=== PATIENT | male | born 1955 ===

== ENCOUNTER 2024-10-20 11:34 | Outpatient (AMB) | payer MEDICARE, SELFPAY ==
--- OUTSIDE RECORDS SUMMARY | 2024-10-20 12:56 | XMS_ITS | Clinical Summary ---
Author Organization [facility] Address [address] [place] [address] Care Team Providers Care Paper Baling Machine Operator Name Role Phone Jackson Orozco MD Primary Care Provider [phone]- [phone] Allergies No known active allergies Medications Medication Sig Dispensed Refills Start Date End Date Status apixaban (ELIQUIS) 2.5 MG TABS tablet Take 1 tablet (2.5 mg total) by mouth every 12 (twelve) hours. 0 Active albuterol 108 (90 Base) MCG/ACT inhaler Inhale 2 puffs into the lungs every 6 (six) hours as needed for wheezing. 0 Active allopurinol (ZYLOPRIM) 300 MG tablet Take 1 tablet (300 mg total) by mouth daily. 0 Active budesonide-formotero l (SYMBICORT) 160-4.5 MCG/ACT inhaler Inhale 2 inhalations into the lungs 2 (two) times a day. 0 Active vitamin D3 (cholecalciferol) 25 MCG (1000 UT) tablet Take 1 tablet (25 mcg total) by mouth daily. 0 Active esomeprazole (NexIUM) capsule 20 mg Take 1 capsule (20 mg total) by mouth every morning before breakfast. 0 Active pregabalin (Lyrica) 75 MG capsule Take 1 capsule (75 mg total) by mouth 2 (two) times a day. 0 Active vitamin E 100 UNIT capsule Take 1 capsule (100 Units total) by mouth daily. 0 Active magnesium oxide 400 (240 Mg) MG TABS tablet Take 1 tablet (400 mg total) by mouth 2 (two) times a day. 0 Active Fluticasone-Umeclidi n-Vilant (TRELEGY ELLIPTA IN) Inhale into the lungs. 0 Active folic acid (FOLVITE) tablet 1 mg Take 1 tablet (1 mg total) by mouth daily. 0 Active Active Problems No known active problems Social History Tobacco Use Types Packs/Day Years Used Date Smoking Tobacco: Former Cigarettes Smokeless Tobacco: Never Tobacco Cessation:Counseling Given: Not Answered Alcohol Use Standard Drinks/Week Comments Yes 0 (1 standard drink = 0.6 oz pur e alcohol) Sex and Gender Information Value Date Recorded Sex Assigned at Not on file Gender Identity Not on file Sexual Orientation Not on file Job Start Date Occupation Industry Not on file Not on file Not on file Last Filed Vital Signs Vital Sign Reading Time Taken Comments Blood Pressure 153/87 05/15/2023 1:10 PM EDT Pulse 70 05/15/2023 1:10 PM EDT Temperature 36.4 C (97.6 F) 05/15/2023 1:10 PM EDT Respiratory Rate - - Oxygen Saturation 100% 05/15/2023 1:10 PM EDT Inhaled Oxygen Concentration - - Weight 69.4 kg (153 lb) 05/15/2023 1:10 PM EDT Height - - Body Mass Index - - Plan of Treatment Health Maintenance Due Date Last Done Comments Hepatitis C Screening 1954 Depression Screening 1966 Preventative Health Evaluation 1972 Colon Cancer Screening (Colonoscopy) 09/28/1999 Fall Risk Assessment 09/28/2019 Pneumococcal Vaccine (2 of 2 - PPSV23 or PCV20) 09/28/2019 03/29/2012 Shingrix-Zoster Vaccine (2 of 2) 10/15/2021 08/20/2021 COVID-19 Vaccine (3 - season) 2023 05/26/2020, 04/28/2020 Influenza Vaccine (#1) 2024 , 11/17/2019, 12/19/2018, Additional history exists RSV Adult > 60+ Yrs or (1 - 1-dose 75+ series) 2029 DTap / Tdap / Td (4 - Td or Tdap) 08/31/2031 08/30/2021, 08/30/2021, 12/18/2011 Hepatitis B Vaccines Aged Out No long er eligible based on patient's age to complete this topic RSV Ped < 20 months Aged Out No longe r eligible based on patient's age to complete this topic Care Teams Paper Baling Machine Operator Relationship Specialty Start Date End Date Jackson Orozco MD [address] [place] [phone] PCP - General Internal Medicine 05/29/22
--- OUTSIDE RECORDS SUMMARY | 2024-10-20 12:56 | XMS_ITS | Clinical Summary ---
Author Organization 175 [facility] Address [address] [place] [address] Phone Care Team Providers Care Display Coordinator Name Role Phone Clarita, Eda Aragon NP Primary Care Provider + Allergies Active Allergy Reactions Criticality Noted Date Comments Other Runny nose Medium 09/09/2015 Medications allopurinoL (ZYLOPRIM) 300 mg tablet Take 1 tablet (300 mg total) by mouth 1 (one) time each day. 3 Active apixaban (ELIQUIS) 2.5 mg tablet Take 1 tablet (2.5 mg total) by mouth 2 (two) times a day. Active budesonide-form oteroL (Symbicort) 160-4.5 mcg/actuation inhaler TAKE INSTRUCTED BY YOUR PRESCRIBER 3 Active cetirizine (ZyrTEC) 10 mg tablet Take 1 tablet (10 mg total) by mouth 1 (one) time each day. Active fluticasone propion-salmete roL (Advair HFA) 230-21 mcg/actuation inhaler Inhale 2 puffs by mouth 2 (two) times a day. 3 Active fluticasone propionate (FLONASE) 50 mcg/actuation nasal spray Administer 2 sprays into affected nostril(s) 1 (one) time each day. Active pregabalin (LYRICA) 150 mg capsule Take 1 capsule (150 mg total) by mouth 2 (two) times a day. Active fluticasone-ume clidinium-vilan terol (Trelegy Ellipta) 100-62.5-25 mcg inhaler USE 1 INHALATION ORALLY DAILY 1 each 11 5 Active lisinopriL (PRINIVIL,ZESTR IL) 20 mg tablet Take 1 tablet (20 mg total) by mouth 1 (one) time each day. Active esomeprazole (NexIUM) [address] capsuleIndicati ons:Gastroesoph ageal reflux disease without esophagitis Take 1 capsule (20 mg total) by mouth 2 (two) times a day before meals. 180 each 1 5 025 Active vitamin E mixed 1,000 unit capsule Take 100 Units by mouth 1 (one) time each day. Active cholecalciferol (VITAMIN D-3) 25 mcg (1,000 unit) tablet Take 1 tablet (1,000 Units total) by mouth 1 (one) time each day. Active folic acid (FOLVITE) 1 mg tablet Take 1 tablet (1 mg total) by mouth 1 (one) time each day. Active albuterol HFA (PROAIR HFA ; PROVENTIL HFA ; VENTOLIN HFA) 90 mcg/actuation inhaler Inhale 2 puffs by mouth every 4 (four) hours if needed for wheezing. 3 each 1 5 026 Active predniSONE (DELTASONE) 20 mg tablet Take 1 tablet (20 mg total) by mouth 1 (one) time each day for 7 days. 7 each 5 025 Discontinu ed(Reorder ) predniSONE (DELTASONE) 20 mg tablet Take 1 tablet (20 mg total) by mouth 1 (one) time each day for 7 days. 7 each 5 025 Active Problems Problem Noted Date Diagnosed Date Esophageal reflux 12/19/2018 Irritable bowel syndrome 12/19/2018 Hyperlipidemia 06/15/2017 Vitamin D deficiency 05/10/2017 Hiatal hernia 08/31/2016 Moderate COPD (chronic obstr uctive pulmonary disease) (CMS/HCC V24, CMS/HCC V28) 08/31/2016 Moderate persistent asthma without complication 08/31/2016 Tubular adenoma of colon 07/26/2016 Rotator cuff tendonitis 05/29/2016 Thrombosed external hemorrhoids 07/16/2015 Internal hemorrhoids 07/15/2015 Allergic rhinitis 05/17/2015 Liver hemangioma 10/26/2014 Low back pain 10/26/2014 Depression 05/30/2013 Gout 04/04/2013 ED (erectile dysfunction) 09/13/2012 Dysphonia 06/09/2011 Encounters Date Type Department Care Team Description 08/18/2024 Telephone Pulmonolgy - [place] [facility] [address] [place] [address] Ion Cha MD 07/22/2024 10:00 AM EDT Office Visit Gastroenterology - [place] [address] [place] [address] [facility] [address] [place] [address] Jj Valenzuela MD Gastroesophageal reflux disease without esophagitis (Primary Dx); Tubular adenoma of colon from Last 3 Months Immunizations Name Administration Dates Next Due DTaP, Unspecified 08/30/2021 Influenza trivalent, 0.5mL, preservative free (Fluarix; FluLaval; Fluzone) ages 6mo and older (Afluria) 3 years and older 12/10/2015 Influenza trivalent, with pr eservative (Fluzone; Afluria) 6mo and older 12/08/2016 Pneumococcal Conjugate Vaccine, 7 Valent 013 Tdap Tetanus diptheria acell ular pertussis (Boostrix; Adacel) 7yo and older 12/18/2011 Surgical History Surgery Date Site/Laterality Comments COLONOSCOPY 07/21/2016 PROCEDURE: HISTORICAL COLONOSCOPY; COMMENT: tubular adenoma, internal hemorrhoids. Repeat 5 years. UPPER GASTROINTESTINAL ENDOSCOPY 10/01/2015 PROCEDURE: [place] UPPER GI ENDOSCOPY PERFORMED; COMMENT: Hiatal hernia, possible short segment 's and antral nodule. OTHER SURGICAL HISTORY 05/25/2022 PROCEDURE: X-RAY EXAM OF LUNG ARTERIES OTHER SURGICAL HISTORY 05/25/2022 PROCEDURE: [place] PRIM PRQ TRLUML MCHNL THRMBC N-COR N-ICRA 1ST OTHER SURGICAL HISTORY 05/25/2022 PROCEDURE: ULTRASOUND GUIDANCE FOR VASCULAR AC Medical History Medical History Date Comments History of esophagitis 11/20/2017 DX:Histor y of esophagitis; COMMENT: Acute Hyperlipidemia 06/15/2017 DX:Hyperlipidemi a Allergic rhinitis 05/17/2015 DX:Allergic rh initis Asthma 09/30/2015 DX:Asthma Depression 05/30/2013 DX:Depression Dysphonia 06/09/2011 DX:Dysphonia Esophageal reflux 12/19/2018 DX:Esophageal reflux Family history of colon cancer 12/19/2018 D X:Family history of colon cancer Former smoker 08/31/2016 DX:Former smoker Gout 04/04/2013 DX:Gout Internal hemorrhoids 07/15/2015 DX:Internal hemorrhoids Irritable bowel syndrome (IBS) 12/19/2018 D X:Irritable bowel syndrome (IBS) Liver hemangioma 10/26/2014 DX:Liver zulay ioma Moderate COPD (chronic obstr uctive pulmonary disease) (CMS/HCC V24, CMS/HCC V28) 08/31/2016 DX:Moderate COPD (chronic obstructive pulmonary disease) (HCC) Overlap syndrome (CMS/HCC V24) 08/31/2016 D X:Overlap syndrome (HCC) Vitamin D deficiency 05/10/2017 DX:Vitamin D deficiency Tubular adenoma of colon 07/26/2016 DX:Tubu lar adenoma of colon Rotator cuff tendonitis 05/29/2016 DX:Rotat or cuff tendonitis Moderate persistent asthma w ithout complication 08/31/2016 DX:Moderate persistent asthm a without complication Irritable bowel syndrome 12/19/2018 DX:Irri table bowel syndrome Low back pain 10/26/2014 DX:Low back pain Hiatal hernia 08/31/2016 DX:Hiatal hernia ED (erectile dysfunction) 09/13/2012 DX:ED (erectile dysfunction) History of gastritis 01/16/2019 DX:History of gastritis Social History Tobacco Use Types Packs/Day Years Used Date Smoking Tobacco: Former Cigarettes 1 16 0 03/05/1972 - 03/05/1988 Smokeless Tobacco: Never Tobacco Cessation:Counseling Given: Not Answered Alcohol Use Standard Drinks/Week Comments Yes 11.7 (1 standard drink = 0.6 oz pure alcohol) Sex and Gender Information Value Date Recorded Sex Assigned at Not on file Legal Sex Male 5:24 PM EST Gender Identity Not on file Sexual Orientation Not on file Obstetrics History Last Filed Vital Signs Vital Sign Reading Time Taken Comments Blood Pressure 112/66 07/22/2024 9:54 AM EDT Pulse 72 07/22/2024 9:54 AM EDT Temperature 36.3 C (97.3 F) 05/30/2024 8:21 AM EDT Respiratory Rate 20 05/30/2024 8:21 AM EDT Oxygen Saturation 98% 05/30/2024 8:21 AM EDT Inhaled Oxygen Concentration - - Weight 61.7 kg (136 lb) 07/22/2024 9:54 AM EDT Height 175.3 cm (5' 9 ) 07/22/2024 9:54 AM EDT Body Mass Index 20.08 07/22/2024 9:54 AM EDT Plan of Treatment Upcoming Encounters Date Type Department Care Team (Late st Contact Info) Description 12/05/2024 8:45 AM EDT Office Visit Pulmonolgy - [place] [address] [phone] Ion Cha MD [address] [address] 12/11/2024 9:[address] [facility] Endoscopy [address] [place] [phone] Jj Valenzuela MD [address] [address] Health Maintenance Due Date Last Done Comments Pneumococcal Vaccine: 50+ Years (1 of 2 - PCV) 1973 Zoster Vaccines (2 of 2) 10/15/2021 08/20/2021 Abdominal Aortic Aneurysm (AAA) Screen 02/11/2022 Falls Risk Assessment 02/11/2022 Hepatitis C Screening 02/11/2022 Medicare Annual Wellness Visit 02/11/2022 Social Influencers of Health Screening 02/11/2022 COVID-19 Vaccine ( season) 2023 12/03/2021, 06/26/2021, 01/08/2021, Additional history exists Depression Screening 03/05/2024 Cholesterol Screening (Lipid Panel) 11/02/2024 11/03/2019, 11/03/2019 Influenza Vaccine (#1) 2024 4, 11/20/2022, 12/03/2021, Additional history exists Colorectal Cancer Screening: Colonoscopy 12/21/2024 12/22/2019, 12/22/2019 DTaP,Tdap,and Td Vaccines (3 - Td or Tdap) 08/31/2031 08/30/2021, 08/30/2021, 12/18/2011 RSV Immunization Adult Patients Completed 11/20/2022 HIB Vaccines Aged Out No longer eligi ble based on patient's age to complete this topic HPV Vaccines Aged Out No longer eligi ble based on patient's age to complete this topic Hepatitis A Vaccines Aged Out No long er eligible based on patient's age to complete this topic Hepatitis B Vaccines Aged Out No long er eligible based on patient's age to complete this topic IPV Vaccines Aged Out No longer eligi ble based on patient's age to complete this topic MMR Vaccines Aged Out No longer eligi ble based on patient's age to complete this topic Meningococcal ACWY Vaccine Aged Out N o longer eligible based on patient's age to complete this topic Meningococcal B Vaccine Aged Out No l onger eligible based on patient's age to complete this topic RSV Immunization Patients Under 20 months Aged Out No longer eligible based on patient's age to complete this topic Varicella Vaccines Aged Out No longer eligible based on patient's age to complete this topic Procedures Procedure Name Priority Date/Time Associated Diagnosis Comments COLONOSCOPY Routine 12/22/2019 LIPID PANEL Routine 11/03/2019 from Last 3 Months or Most Recently Relevant to Health Maintenance Results * Colonoscopy (12/22/2019) [facility] Colonoscopy no interpretation , abstracted Anatomical Region Laterality Modality Other Historical Provider HEALTH MAINTENANCE Final Result * (ABNORMAL) Lipid panel (11/03/2019) Pathologist [facility] LDL/HDL Ratio 2 0 - 4 Triglycerides 123 0 - 150 mg/dL Cholesterol 205(A) 0 - 200 mg/dL HDL 119 >=40 mg/dL LDL Cholesterol 62 0 - 100 mg/dL Blood Venous blood specimen / Unknown Historical Provider LAB BLOOD ORDERABLES Verito l Result from Last 3 Months or Most Recently Relevant [place] [id number] [employer] - [place] MEDICARE ADVANTAGE Care Teams Display Coordinator Relationship Specialty Start Date End Date Eda Otto NP [address] [facility] [address] [place] [address] PCP - General Family Medicine 07/22/24
== END 2024-10-20 11:37 | disposition home or self-care (01) ==
LOC: HO.HMGAL 11:34
PROVIDERS: PCP Nurse Practitioner Family; Visit Provider Registered Nurse Emergency
DX: J30.89 Other allergic rhinitis (principal)
CPT/HCPCS: 95117; 95165

== ENCOUNTER 2024-11-10 10:37 | Outpatient (AMB) | payer MEDICARE, SELFPAY ==
--- OUTSIDE RECORDS SUMMARY | 2024-11-10 12:49 | XMS_ITS | Clinical Summary ---
Author Organization [facility] Address [address] [place] [address] Care Team Providers Care Mill Tender Warm Up Name Role Phone Jackson Orozco MD Primary Care Provider +1- [phone] Allergies No known active allergies Medications Medication [...] 10/15/2021 08/20/2021 COVID-19 Vaccine (3 - season) 2024 05/26/2020, 04/28/2020 Influenza Vaccine (#1) 2024 , [...] age to complete this topic Care Teams Mill Tender Warm Up Relationship Specialty Start Date End Date Jackson Orozco MD [address] [place] [phone] PCP - General Internal Medicine 05/29/22
--- OUTSIDE RECORDS SUMMARY | 2024-11-10 12:49 | XMS_ITS | Clinical Summary ---
Author Organization 175 [facility] Address [address] [place] [address] Phone Care Team Providers Care Pulper Tender Name Role Phone Clarita, Eda Aragon NP [...] mouth 2 (two) times a day. Active budesonide-formo teroL (Symbicort) 160-4.5 mcg/actuation inhaler TAKE INSTRUCTED BY YOUR PRESCRIBER 3 Active cetirizine (ZyrTEC) 10 mg tablet Take 1 tablet (10 mg total) by mouth 1 (one) time each day. Active fluticasone propion-salmeter oL (Advair HFA) 230-21 mcg/actuation inhaler Inhale 2 puffs by mouth 2 (two) times a day. 3 Active fluticasone propionate (FLONASE) 50 mcg/actuation nasal spray Administer 2 sprays into affected nostril(s) 1 (one) time each day. Active pregabalin (LYRICA) 150 mg capsule Take 1 capsule (150 mg total) by mouth 2 (two) times a day. Active fluticasone-umec lidinium-vilante rol (Trelegy Ellipta) 100-62.5-25 mcg inhaler USE 1 INHALATION ORALLY DAILY 1 each 11 5 Active lisinopriL (PRINIVIL,ZESTRI L) 20 mg tablet Take 1 tablet (20 mg total) by mouth 1 (one) time each day. Active esomeprazole (NexIUM) [address] capsuleIndicatio ns:Gastroesophag eal reflux disease without esophagitis Take 1 capsule (20 mg total) by mouth 2 (two) times a day before meals. 180 each 1 5 12/31/19 25 Active vitamin E mixed 1,000 unit capsule [...] needed for wheezing. 3 each 1 5 09/09/19 26 Active predniSONE (DELTASONE) 20 mg tablet Take 1 tablet (20 mg total) by mouth 1 (one) time each day for 7 days. 7 each 5 10/18/19 25 Active Problems Problem Noted Date Diagnosed Date Esophageal reflux 12/19/2018 Irritable bowel syndrome 12/19/2018 Hyperlipidemia 06/15/2017 Vitamin D deficiency 05/10/2017 Hiatal hernia 08/31/2016 Moderate COPD (chronic obstr uctive pulmonary disease) ([facility] V24, [facility] V28) 08/31/2016 Moderate persistent asthma without complication 08/31/2016 Tubular adenoma of colon 07/26/2016 Rotator cuff tendonitis 05/29/2016 Thrombosed external hemorrhoids 07/16/2015 Internal hemorrhoids 07/15/2015 Allergic rhinitis 05/17/2015 Liver hemangioma 10/26/2014 Low back pain 10/26/2014 Depression 05/30/2013 Gout 04/04/2013 ED (erectile dysfunction) 09/13/2012 Dysphonia 06/09/2011 Encounters Date Type Department Care Team Description 08/18/2024 Telephone Pulmonolgy - [place] 175 [facility] [address] [place] [address] Ion Cha MD from Last 3 Months Immunizations Name Administration [...] 5 years. UPPER GASTROINTESTINAL ENDOSCOPY 10/01/2015 PROCEDURE: [place] UPPER GI ENDOSCOPY PERFORMED; COMMENT: Hiatal hernia, possible short segment 's and antral nodule. OTHER SURGICAL HISTORY 05/25/2022 PROCEDURE: X-RAY EXAM OF LUNG ARTERIES OTHER SURGICAL HISTORY 05/25/2022 PROCEDURE: [place] PRIM PRQ TRLUML MCHNL THRMBC N-COR N-ICRA [...] 08/31/2016 DX:Moderate COPD (chronic obstructive pulmonary disease) ([facility]) Overlap syndrome ([facility] V24) 08/31/2016 D X:Overlap syndrome ([facility]) Vitamin D deficiency 05/10/2017 DX:Vitamin D deficiency [...] 8:45 AM EDT Office Visit Pulmonolgy - [place] 175 [facility] [address] [place] [phone] Ion Cha MD 175 [facility] [address] [place] [address] 12/11/2024 9:00 AM EDT Appointment [facility] Endoscopy [address] [place] [phone] Jj Valenzuela MD [address] [place] [phone] Health Maintenance Due Date Last Done Comments Pneumococcal Vaccine: 50+ Years (1 of 2 - PCV) 1973 Zoster Vaccines (2 of 2) 10/15/2021 08/20/2021 Abdominal Aortic Aneurysm (AAA) Screen 02/11/2022 Falls Risk Assessment 02/11/2022 Hepatitis C Screening 02/11/2022 Medicare Annual Wellness Visit 02/11/2022 Social Influencers of Health Screening 02/11/2022 Depression Screening 03/05/2024 Cholesterol Screening (Lipid Panel) 11/02/2024 11/03/2019, 11/03/2019 COVID-19 Vaccine ( season) 2024 12/03/2021, 06/26/2021, 01/08/2021, Additional history exists Influenza Vaccine (#1) 2024 , 11/20/2022, 12/03/2021, Additional history exists Colorectal Cancer [...] to Health Maintenance Results * Colonoscopy (12/22/2019) Pathologist Pending sale to [facility] Colonoscopy no interpretation , abstracted Anatomical Region Laterality Modality Other Historical Provider HEALTH MAINTENANCE Final Result * (ABNORMAL) Lipid panel (11/03/2019) LDL/HDL Ratio 2 0 - 4 Triglycerides 123 0 - 150 mg/dL Cholesterol 205(A) 0 - 200 mg/dL HDL 119 >=40 mg/dL LDL Cholesterol 62 0 - 100 mg/dL Blood Venous blood specimen / Unknown Historical Provider LAB BLOOD ORDERABLES Verito l Result from Last 3 Months or Most Recently Relevant to Health Maintenance Insurance [employer] - [place] MEDICARE ADVANTAGE Care Teams Pulper Tender Relationship Specialty Start Date End Date Eda Otto NP 21 [facility] [place] [address] [place] [address] PCP - General Family Medicine 07/22/24
== END 2024-11-10 10:56 | disposition home or self-care (01) ==
LOC: HO.HMGAL 10:37
PROVIDERS: PCP Nurse Practitioner Family; Visit Provider Registered Nurse Emergency
DX: J30.89 Other allergic rhinitis (principal)
CPT/HCPCS: 95117; 95165

== ENCOUNTER 2024-12-29 12:50 | Outpatient (AMB) | payer MEDICARE, SELFPAY ==
--- OUTSIDE RECORDS SUMMARY | 2024-12-29 16:18 | XMS_ITS | Clinical Summary ---
Author Organization 175 [facility] Address [address] [place] [address] Phone Care Team Providers Care Product Info Specialist Name Role Phone Eda Otto NP Primary Care Provider + Allergies No known active allergies Medications allopurinoL (ZYLOPRIM) 300 mg tablet Take 1 tablet (300 mg total) by mouth 1 (one) time each day. 10/11/19 23 Active apixaban (ELIQUIS) 2.5 mg tablet Take 1 tablet (2.5 mg total) by mouth 2 (two) times a day. Active cetirizine (ZyrTEC) 10 mg tablet Take 1 tablet (10 mg total) by mouth 1 (one) time each day. Active fluticasone propionate (FLONASE) 50 mcg/actuation nasal spray Administer 2 sprays into affected nostril(s) 1 (one) time each day. Active pregabalin (LYRICA) 150 mg capsule Take 1 capsule (150 mg total) by mouth 2 (two) times a day. Active fluticasone-um eclidinium-daisha anterol (Trelegy Ellipta) 100-62.5-25 mcg inhaler USE 1 INHALATION ORALLY DAILY 1 each 11 03/25/19 25 Active lisinopriL (PRINIVIL,ZEST RIL) 20 mg tablet Take 1 tablet (20 mg total) by mouth 1 (one) time each day. Active vitamin E mixed 1,000 unit capsule Take 100 Units by mouth 1 (one) time each day. Active cholecalcifero l (VITAMIN D-3) 25 mcg (1,000 unit) tablet [...] if needed for wheezing. 3 each 1 09/09/19 25 2025 Active thiamine 100 mg tablet Take 1 tablet (100 mg total) by mouth 1 (one) time each day. Active montelukast (SINGULAIR) 10 mg tablet Take 1 tablet (10 mg total) by mouth at bedtime. 30 each 11 12/12/19 25 2025 Active esomeprazole (NexIUM) [address] capsuleIndicat ions:Gastroeso phageal reflux disease without esophagitis TAKE 1 CAPSULE TWICE DAILY BEFORE MEALS 180 capsule 3 12/17/19 Active budesonide-for moteroL (Symbicort) 160-4.5 mcg/actuation inhaler TAKE INSTRUCTED BY YOUR PRESCRIBER 12/06/19 23 2024 Discontinued(F ormulary change) fluticasone propion-salmet Ricardo (Advair HFA) 230-21 mcg/actuation inhaler Inhale 2 puffs by mouth 2 (two) times a day. 03/02/20 23 2024 Discontinued(F ormulary change) esomeprazole (NexIUM) [address] capsuleIndicat ions:Gastroeso phageal reflux disease without esophagitis Take 1 capsule (20 mg total) by mouth 2 (two) times a day before meals. 180 each 1 07/04/19 25 2024 Discontinued polyethylene glycol (Golytely) 236-22.74-6.74 -5.86 gram solution Take 4L by mouth once for one dose. May substitue any PEG. Starting at 2PM the day before your procedure drink 1 8oz glasses at your own pace until you complete half of the gallon. Finish 2nd half of the gallon at 8PM. 4000 mL 11/28/19 25 2024 Discontinued bisacodyL (DULCOLAX) 5 mg EC tablet Take 2 tablets by mouth right before beginning bowel prep. See instructions provided by the office 2 tablet 11/28/19 25 2024 Discontinued Active Problems Problem Noted Date Diagnosed Date Esophageal reflux 12/19/2018 Irritable bowel syndrome 12/19/2018 Hyperlipidemia 06/15/2017 Vitamin D deficiency 05/10/2017 Hiatal hernia 08/31/2016 Moderate COPD (chronic obstr uctive pulmonary disease) ([facility] V24, [facility] V28) 08/31/2016 Moderate persistent asthma without complication 08/31/2016 Tubular adenoma of colon 07/26/2016 Rotator cuff tendonitis 05/29/2016 Thrombosed external hemorrhoids 07/16/2015 Internal hemorrhoids 07/15/2015 Allergic rhinitis 05/17/2015 Liver hemangioma 10/26/2014 Low back pain 10/26/2014 Depression 05/30/2013 Gout 04/04/2013 ED (erectile dysfunction) 09/13/2012 Dysphonia 06/09/2011 Encounters Date Type Department Care Team Description 12/11/2024 9:21 AM EDT Anesthesia Event [facility] Endoscopy [address] [place] [phone] Bairon Hudson MD McAdams, Megan, CRNA 12/11/2024 8:03 AM EDT - 12/11/2024 11:59 PM EDT Hospital Encounter [facility] Endoscopy [address] [place] [phone] Jj Valenzuela MD McAdams, Megan, SHANNON Family hx of colon cancer; Tubular adenoma of colon Discharge Disposition: Home or Self Care 12/05/2024 8:45 AM EDT Office Visit Pulmonology - [place] [address] [facility] [address] [place] [phone] Ion Cha MD Moderate COPD (chronic obstructive pulmonary disease) ([facility] V24, [facility] V28) (Primary Dx); Saddle embolus of pulmonary artery without acute cor pulmonale, unspecified chronicity ([facility] V24, [facility] V28) from Last 3 Months Immunizations Immunization Administration Dates Next Due DTaP, Unspecified 08/30/2021 [...] 5 years. UPPER GASTROINTESTINAL ENDOSCOPY 10/01/2015 PROCEDURE: [facility] UPPER [facility] ENDOSCOPY PERFORMED; COMMENT: Hiatal hernia, possible short segment 's and antral nodule. OTHER SURGICAL HISTORY 05/25/2022 PROCEDURE: X-RAY EXAM OF LUNG ARTERIES OTHER SURGICAL HISTORY 05/25/2022 PROCEDURE: [facility] PRIM PRQ TRLUML MCHNL THRMBC N-COR N-ICRA [...] standard drink = 0.6 oz pure alcohol) Interpersonal Safety Answer Date Record ed Physical Abuse Unrecognized value 12/11/2024 Verbal Abuse Unrecognized value 12/11/2024 Sex and Gender Information Value Date Recorded Sex Assigned at Male 12/06/2024 5:35 PM EDT Legal Sex Male 5:24 PM EST Gender Identity Male 12/06/2024 5:35 PM EDT Sexual Orientation Not on file Travel History Travel Start Travel End [place] 11/04/2024 12/04/2024 Obstetrics History Last Filed Vital Signs Vital Sign Reading Time Taken Comments Blood Pressure 112/75 12/11/2024 10:31 AM EDT Pulse 69 12/11/2024 10:31 AM EDT Temperature 36.5 C (97.7 F) 12/11/2024 10:11 AM EDT Respiratory Rate 18 12/11/2024 10:31 AM EDT Oxygen Saturation 98% 12/11/2024 10:31 AM EDT Inhaled Oxygen Concentration - - Weight 64.6 kg (142 lb 6.4 oz) 12/05/2024 8:44 A M EDT Height 175.3 cm (5' 9 ) 12/05/2024 8:44 AM EDT Body Mass Index 21.03 12/05/2024 8:44 AM EDT Plan of Treatment Upcoming Encounters Date Type Department Care Team (Late st Contact Info) Description 06/05/2025 8:45 AM EDT Office Visit Pulmonology - [address] [place] [address] Ion Cha MD [facility] [place] [phone] Health Maintenance Due Date Last Done Comments Pneumococcal Vaccine: 50+ Years (1 of 2 - PCV) 1973 Zoster Vaccines (2 of 2) 10/15/2021 08/20/2021 Abdominal Aortic Aneurysm (AAA) Screen 02/11/2022 Hepatitis C Screening 02/11/2022 Medicare Annual Wellness Visit 02/11/2022 Social Influencers of Health Screening 02/11/2022 Depression Screening 03/05/2024 Cholesterol Screening (Lipid Panel) 11/02/2024 11/03/2019, 11/03/2019 COVID-19 Vaccine ( season) 2024 12/03/2021, 06/26/2021, 01/08/2021, Additional history exists Falls Risk Assessment 12/11/2025 12/11/2024 Colorectal Cancer Screening: Colonoscopy 12/11/2029 12/11/2024, 12/22/2019, 12/22/2019 DTaP,Tdap,and Td Vaccines (3 - Td or Tdap) 08/31/2031 08/30/2021, 08/30/2021, 12/18/2011 RSV Immunization Adult Patients Completed 11/20/2022 Influenza Vaccine Completed 12/05/2024, , 11/20/2022, Additional history exists HIB Vaccines Aged Out No longer eligi [...] Priority Date/Time Associated Diagnosis Comments COLONOSCOPY Routine 12/11/2024 10:10 AM EDT Family hx of colon cancer Tubular adenoma of colon TISSUE EXAM Routine 12/11/2024 10:02 AM EDT Family hx of colon cancer Tubular adenoma of colon LIPID PANEL Routine 11/03/2019 from Last 3 Months or Most Recently Relevant to Health Maintenance Results * COLONOSCOPY Anesthesia - MAC; [facility] (12/11/2024 10:10 AM EDT) Anatomical Region Laterality Modality Other 12/11/2024 9:14 AM EDT Impressions 12/11/2024 10:12 AM EDT - Hemorrhoids. - One 5 mm polyp at the recto-sigmoid colon, removed with a hot snare. Resected and retrieved. - One 25 mm polyp in the descending colon, removed with a hot snare. Resected and retrieved. Clips were placed. Recommendation: - Repeat colonoscopy in 3 years for surveillance. - Use fiber, for example Citrucel, Fibercon, Konsyl or Metamucil. Narrative 12/11/2024 10:12 AM EDT [facility] GI Patient Name: Cristian Chase Procedure Date: 12/11/2024 9:14 AM Date of : 1955 Age: 69 Gender: Male Note Status: Finalized Attending MD: Jj Valenzuela MD, Procedure Date No Time: 12/11/2024 Procedure: Colonoscopy Indications: High risk colon cancer surveillance: Personal history of colonic polyps Providers: Jj Valenzuela MD Referring MD: Jj Valenzuela MD Medicines: Propofol per Anesthesia Complications: No immediate complications. Estimated Blood Loss: Estimated blood loss: 15 mL requiring treatment with placement of hemostatic clip(s). Procedure: Pre-Anesthesia Assessment: - ASA Grade Assessment: III - A patient with severe systemic disease. After I obtained informed consent, the scope was passed under direct vision. Throughout the procedure, the patient's blood pressure, pulse, and oxygen saturations were monitored continuously.The Colonoscope was introduced through the anus and advanced to the cecum, identified by appendiceal orifice and ileocecal valve. The colonoscopy was performed without difficulty. The patient tolerated the procedure well. The quality of the bowel preparation was adequate. Findings: The perianal and digital rectal examinations were normal. Hemorrhoids were found during endoscopy. The hemorrhoids were Grade II (internal hemorrhoids that prolapse but reduce spontaneously). A 5 mm polyp was found in the recto-sigmoid colon. The polyp was sessile. The polyp was removed with a hot snare. Resection and retrieval were complete. Estimated blood loss: none. A 25 mm polyp was found in the descending colon. The polyp was pedunculated. The polyp was removed with a hot snare. Resection and retrieval were complete. Estimated blood loss: 15 mL requiring treatment with placement of hemostatic clip(s). To prevent bleeding post-intervention, three hemostatic clips were successfully placed. There was no bleeding at the end of the procedure. Procedure Code(s): --- Professional --- 61884, Colonoscopy, flexible; with removal of tumor(s), polyp(s), or other lesion(s) by snare technique Diagnosis Code(s): --- Professional --- Z86.010, Personal history of colonic polyps K64.1, Second degree hemorrhoids D12.7, Benign neoplasm of rectosigmoid junction D12.4, Benign neoplasm of descending colon CPT copyright 202 [employer]. All rights reserved. The codes documented in this report are preliminary and upon legislative correspondent review may be revised to meet current compliance requirements. Jj Valenzuela MD 12/11/2024 10:12:39 AM This report has been signed electronically.Jj Valenzuela MD Number of Addenda: 0 Note Initiated On: 12/11/2024 9:14 AM Scope In: Scope Out: Endoscopy Department at [facility] - [address] [place] [id number] Procedure Note Jj Valenzuela MD - 12/11/2024 [facility] GI Patient Name: Cristian Chase Procedure Date: 12/11/2024 9:14 AM Date of : 1955 Age: 69 Gender: Male Note Status: Finalized Attending MD: Jj Valenzuela MD, Procedure Date No Time: 12/11/2024 Procedure: Colonoscopy Indications: High risk colon cancer surveillance: Personalhistory of colonic polyps Providers: Jj Valenzuela MD Referring MD: Jj Valenzuela MD Medicines: Propofol per Anesthesia Complications: No immediate complications. Estimated Blood Loss: Estimated blood loss: 15 mL requiring treatment with placement of hemostatic clip(s). Procedure: Pre-Anesthesia Assessment: - ASA Grade Assessment: III - A patient with severe systemic disease. After I obtained informed consent, the scope was passed under direct vision. Throughout theprocedure, the patient's blood pressure, pulse, and oxygen saturations were monitored continuously.The Colonoscope was introduced through the anus and advanced to the cecum, identified by appendiceal orifice and ileocecal valve. The colonoscopy was performed without difficulty. The patient tolerated the procedure well. The quality of the bowel preparation was adequate. Findings: The perianal and digital rectal examinations were normal. Hemorrhoids were found during endoscopy. The hemorrhoids were Grade II (internal hemorrhoidsthat prolapse but reduce spontaneously). A 5 mm polyp was found in the recto-sigmoid colon.The polyp was sessile. The polyp was removed with a hot snare. Resection and retrieval were complete. Estimated blood loss: none. A 25 mm polyp was found in the descending colon.The polyp was pedunculated. The polyp was removed witha hot snare. Resection and retrieval were complete. Estimated blood loss: 15 mL requiring treatmentwith placement of hemostatic clip(s). To preventbleeding post-intervention, three hemostatic clips were successfully placed. There was no bleeding at theend of the procedure. Procedure Code(s): --- Professional --- 64223, Colonoscopy, flexible; with removal of tumor(s), polyp(s), or other lesion(s) by snare technique Diagnosis Code(s): --- Professional --- Z86.010, Personal history of colonic polyps K64.1, Second degree hemorrhoids D12.7, Benign neoplasm of rectosigmoid junction D12.4, Benign neoplasm of descending colon CPT copyright 2020 [employer]. All rights reserved. The codes documented in this report are preliminary and upon legislative correspondent reviewmay be revised to meet current compliance requirements. Jj Valenzuela MD 12/11/2024 10:12:39 AM This report has been signed electronically.Jj Valenzuela MD Number of Addenda: 0 Note Initiated On: 12/11/2024 9:14 AM Scope In: Scope Out: Endoscopy Department at [facility] - [address] [place] [id number] IMPRESSION: - Hemorrhoids. - One 5 mm polyp at the recto-sigmoid colon,removed with a hot snare. Resected and retrieved. - One 25 mm polyp in the descending colon, removed with a hot snare. Resected and retrieved. Clipswere placed. Recommendation: - Repeat colonoscopy in 3 years for surveillance. - Use fiber, for example Citrucel, Fibercon, Konsylor Metamucil. us Jj Valenzuela MD GI~PROCEDURE ORDERABLES Final Re sult * Tissue exam (12/11/2024 10:02 AM EDT) Final Diagnosis A. Descending Colon, polyp: Tubular adenoma. Margin is uninvolved; compatible with complete retrieval. B. Rectum, recto-sigmoid polyp: Tubular adenoma. 12/12/2024 10:19 AM EDT [facility] at 1019 EDT Gross Description A. Large Intestine, Left/Descending Colon, polyp x1: Labeled descending colon polyp x 1 . Received in formalin is a 1.1 x 0.9 x 0.6 cm pink-red lobular mucosal polyp with a mucosal stalk measuring up to 1.3 cm in length. The margin is inked blue. The specimen is longitudinally bisected and entirely submitted in one cassette, two pieces, multiple levels B. Large Intestine, Rectum, recto-sigmoid polyp x1: Labeled LI rectum, rectosigmoid . Received in formalin is a 0.2 cm irregular liao mucosal tissue fragment which is wrapped in paper and submitted in toto in one cassette, one piece, multiple levels on one slide. HARSHAD 12/12/2024 10:19 AM EDT [facility] Disclaimer Unless otherwise specified, all tissue is 10% NB formalin fixed and paraffin embedded. 12/12/2024 10:19 AM EDT [facility] Tissue Descending colon structure / Unknown 12/11/2024 10:02 AM EDT 12/11/2024 10:43 AM EDT Tissue specimen (specimen) Rectum structure / Unknown 12/11/2024 10:05 AM EDT 12/11/2024 10:43 AM EDT Jj Valenzuela MD LAB PATHOLOGY ORDERABLES Final R esult [facility] [address] [place] [address], * (ABNORMAL) Lipid panel (11/03/2019) LDL/HDL Ratio [...] [place] - [place] Care Teams Product Info Specialist Relationship Specialty Start Date End Date Eda Otto NP [address] [facility] [address] [place] [address] PCP - General Family Medicine 07/22/24
--- OUTSIDE RECORDS SUMMARY | 2024-12-29 16:18 | XMS_ITS | Clinical Summary ---
Author Organization [facility] Address [address] [place] [address] Care Team Providers Care Supervisor Power Reactor Name Role Phone Jackson Orozco MD Primary Care Provider [phone] Allergies No known active allergies Medications Medication [...] age to complete this topic Care Teams Supervisor Power Reactor Relationship Specialty Start Date End Date Jackson Orozco MD [address] [place] [phone] PCP - General Internal Medicine 05/29/22
--- OUTSIDE RECORDS SUMMARY | 2024-12-29 16:18 | XMS_ITS | Data Portability ---
Author Organization [place] - [facility], Allergy Address [address] [address] Care Team Providers Care [employer] Director Name Role Phone SHITAL MARI Primary Care Provider Assessment Encounter Date Assessment Date Assessment LastModified by Organization Details LastModified Time 11/10/2024 11/10/2024 Patient symptoms are consistent with right sided patulous eustachian tube. This is confirmed on physical exam. Nasopharyngoscopy shows no nasopharyngeal pathology. Today we discussed the pathophysiology of this process and how it is likely related to his significant weight loss over the past 5 years. I have recommended use of Patulend nasal drops and instructed on how to obtain this on the appropriate website. We discussed how this noninvasive option can be quite useful in eliminating patulous eustachian tube symptoms. We discussed alternative treatments such as topical estrogen nose drops. Patient would like to try the Patulend. If he is still symptomatic despite this treatment, we may consider referral to Dr. Dell Vance at [facility] to discuss more invasive options for treatment of this process. [email or web address] Not available 11/10/2024 10:09:51 Plan of Treatment Reminders Order Date Submit Date Provider Last Modified By Organization Details Last Modified Time Details Appointments None record ed. Lab None record ed. Referral None record ed. Procedures None record ed. Surgeries None record ed. Imaging None record ed. Medication Orders None record ed. Patient TargetsNo targets recorded. Patient Instructions Encounter Date Encounter Id Patient Instructions Last Modified By Organization Details Last Modified Time 11/10/2024 [id number] Please note: Parts of this encounter note have been generated by AI based on audio conversation. Patient consent was required prior to utilizing this technology. Content review was required prior to finalizing the note. [email or web address] Not available 11/10/2024 10:06:00 Reason for Referral None Reported. Problems Name Problem SNOMED Code Status Onset Date Resolution Date Notes Provider Name and Address Organization Details Recorded Time Patulous right Eustachian tube 5308501186025 104 Active 2024 ZONIA DE OLIVEIRA MD [address] [facility], [address], [place], [address], [facility] - [facility] 10:04:55 Sensorineur al hearing loss of bilateral ears 279966614 Active 2024 ZONIA DE OLIVEIRA MD 100 [facility], [address], [place], [address], [facility] - [facility] 10:05:37 Problem Notes None recorded. Procedures Surgical History Date Name Laterality Status Provider Name and Address Organization Details Recorded Time 025 Fiberoptic Nasopharyngoscopy completed ZONIA DE OLIVEIRA MD [address], [address], [facility] - [facility] 11/10/2024 09:56:04 laminectomy completed Pilar Bourne [place] - [facility] [place] 11/10/2024 09:46:49 appendectomy completed Pilar Bourne [place] - [facility] 11/10/2024 09:46:55 hernia repair completed Pilar Bourne [place] - [facility] 11/10/2024 09:47:01 Imaging Results None recorded. Procedure Notes None recorded. Medical Equipment None Reported. Allergies No known drug allergies Medications Name Sig Start Date Stop Date Status Note LastModified by Organization Details LastModified Time azithromyci n 250 mg tablet TAKE DIRECTED 11/10 completed Not Available Not Available Not Available Claritin 10 mg tablet Take 1 tablet every day by oral route. active Not Available Not Available No t Available lisinopril 20 mg tablet TAKE 1 TABLET BY MOUTH EVERY DAY active Not Available Not Available No t Available prednisone 20 mg tablet TAKE 1 TABLET (20 MG TOTAL) BY MOUTH 1 (ONE) TIME A DAY FOR 7 DAYS. 11/10 completed Not Available Not Available Not Available lisinopril 10 mg tablet TAKE 1 TABLET BY MOUTH EVERY DAY 11/10 completed Not Available Not Available Not Available allopurinol 300 mg tablet TAKE 1 TABLET BY MOUTH EVERY DAY 11/10 completed Not Available Not Available Not Available methylpredn isolone 4 mg tablets in a dose pack TAKE 6 TABLETS ON DAY 1 DIRECTED ON PACKAGE AND DECREASE BY 1 TAB EACH DAY FOR A TOTAL OF 6 DAYS 11/10 completed Not Available Not Available Not Available albuterol sulfate HFA 90 mcg/actuati on aerosol inhaler USE 2 INHALATIO NS ORALLY EVERY 4 HOURS IF NEEDED FORWHEEZI NG 2024 active Not Available Not Available Not Avai lable esomeprazol e magnesium 20 mg capsule,del ayed release TAKE 1 CAPSULE TWICE DAILY BEFORE MEALS active Not Available Not Available No t Available oxycodone 5 mg tablet TAKE 1-2 TABLETS BY MOUTH EVERY 4-6 HOURS NEEDED FOR SEVERE PAIN 11/10 completed Not Available Not Available Not Available cyclobenzap rine 5 mg tablet TAKE 1 TABLET BY MOUTH 3 TIMES A DAY FOR 10 DAYS 11/10 completed Not Available Not Available Not Available Eliquis 5 mg tablet TAKE 1 TABLET BY MOUTH TWICE A DAY active Not Available Not Available No t Available Flonase Allergy Relief 50 mcg/actuati on nasal spray,suspe nsion [place] 1 spray every day by intranasa l route. active Not Available Not Available No t Available Trelegy Ellipta 100 mcg-62.5 mcg-25 mcg powder for inhalation USE 1 INHALATIO N ORALLY DAILY active Not Available Not Available No t Available Vitals Date Recorded Body height Body weight Provider Name and Address Organization Details Last Updated DateTime 11/10/2024 175.26 cm 44617.3 g Pilar Bourne [place] - [facility] 11/10/2024 09:45:29 Social History None recorded. Functional Status None recorded. Mental Status None recorded. Family History Nothing Reported. Medical History Condition Response Arthritis Y Hypertension Y Asthma Y GERD/Reflux Y Past Encounters Encounter ID Performer Location Encounter Start Date Encounter Closed Date Diagnosis/Indication Diagnosis SNOMED-CT Code Diagnosis ICD10 Code Diagnosis IMO Codes Diagnosis Note [id number] ZONIA DE OLIVEIRA MD [facility] [address] [address] 11/10/2024 08:44:35 11/10/2024 10:07:04 Patulous right Eustachian tube [id number] 773174 H69.01 2782258 Sensorineu ral hearing loss of bilateral ears 226834513 H90.3 [id number] Audiometri c testing from Dr. Ware's office reviewed showing bilateral high-frequ ency sensorineu ral hearing loss consistent with presbycusi s. No need to repeat his audiogram today. Health Concerns Section Related Observation LastModified by Organization Detai ls LastModified Time None Recorded Concern Status LastModified by Organization Details LastModified Time None Recorded Advance Directives Directive None Recorded Payers Insurance Date Sequence Insurance Name Policy Number Policy [place] Covered Member ID [place] Member ID Guarantor Name 11/10/2024 1 [facility]: MEDICARE PPO BLUE (MEDICARE REPLACEMENT PPO) [id number] Cristian Chase [id number] Cristian Chase Notes Date Note Type Note Provider Name and Address Organization Details Recorded Time 11/10/2024 text/html Former patient of Dr. Ware who received immunotherapy through his office for 20years. We have a copy of his last audiogram from February 2024 which showed bilateral symmetric high-frequency sensorineural hearing loss consistent with presbycusis.Patient reports 5-year history of autophony and hearing his own breathing of the right ear which is present about 90% of the time. He has noticed no exacerbating or improving factors. No pain or discharge. He does not notice any asymmetric hearing loss. He reports having 150 pound weight loss over the past 5 years. ZONIA DE OLIVEIRA MD [address] [place] [address], [phone], [facility] - [facility] 11/10/2024 10:10:12
== END 2024-12-29 12:51 | disposition home or self-care (01) ==
LOC: HO.HMGAL 12:50
PROVIDERS: PCP Nurse Practitioner Family; Visit Provider Registered Nurse Emergency
DX: J30.89 Other allergic rhinitis (principal)
CPT/HCPCS: 95117; 95165

== ENCOUNTER 2025-01-26 11:33 | Outpatient (AMB) | payer MEDICARE, SELFPAY ==
--- OUTSIDE RECORDS SUMMARY | 2025-01-26 15:21 | XMS_ITS | Clinical Summary ---
Author Organization [address] [facility] Address [address] [place] [address] Phone Care Team Providers Care Rn Neurology Name Role Phone Eda Otto NP Primary [...] 3 each 1 5 09/09/19 26 Active thiamine 100 mg tablet Take 1 tablet (100 mg total) by mouth 1 (one) time each day. Active montelukast (SINGULAIR) 10 mg tablet Take 1 tablet (10 mg total) by mouth at bedtime. 30 each 11 5 12/12/19 26 Active esomeprazole (NexIUM) [address] capsuleIndicatio ns:Gastroesophag eal reflux disease without esophagitis TAKE 1 CAPSULE TWICE DAILY BEFORE MEALS 180 capsule 3 5 Active Active Problems Problem Noted Date Diagnosed Date [...] Description 12/11/2024 9:21 AM EDT Anesthesia Event [facility] Endoscopy [address] [place] [phone] Bairon Hudson MD McAdams, Megan, SHANNON 12/11/2024 8:03 AM EDT - 12/11/2024 11:59 PM EDT Hospital Encounter [facility] Endoscopy [address] [place] [phone] Jj Valenzuela MD McAdams, Megan, CRNA Family hx of colon cancer; Tubular adenoma of colon Discharge Disposition: Home or Self Care 12/05/2024 8:45 AM EDT Office Visit Pulmonology - [address] [place] [address] Ion Cha MD Moderate COPD (chronic obstructive pulmonary disease) ([facility] V24, [facility] V28) (Primary Dx); Saddle embolus of pulmonary artery without acute cor pulmonale, unspecified chronicity ([facility] V24, [facility] V28) from Last 3 Months Immunizations Immunization [...] 5 years. UPPER GASTROINTESTINAL ENDOSCOPY 10/01/2015 PROCEDURE: MN UPPER GI ENDOSCOPY PERFORMED; COMMENT: Hiatal hernia, possible short segment 's and antral nodule. OTHER SURGICAL HISTORY 05/25/2022 PROCEDURE: X-RAY EXAM OF LUNG ARTERIES OTHER SURGICAL HISTORY 05/25/2022 PROCEDURE: MN PRIM PRQ TRLUML MCHNL THRMBC N-COR N-ICRA [...] (chronic obstructive pulmonary disease) (HCC) Overlap syndrome ([facility] V24) 08/31/2016 D X:Overlap syndrome (HCC) Vitamin [...] PM EDT Sexual Orientation Not on file Obstetrics History [...] 8:45 AM EDT Office Visit Pulmonology - [address] [place] [address] Ion Cha MD [address] [place] [phone] Health Maintenance Due Date Last Done [...] Maintenance Results * COLONOSCOPY Anesthesia - MAC; [facility] ENDOSCOPY (12/11/2024 10:10 AM EDT) Anatomical Region [...] or Metamucil. Narrative 12/11/2024 10:12 AM EDT [facility] GI Patient Name: Cristian Chase Procedure Date: [...] the procedure. Procedure Code(s): --- Professional --- 02895, Colonoscopy, flexible; with removal of tumor(s), polyp(s), or other lesion(s) by snare technique Diagnosis Code(s): --- Professional --- Z86.010, Personal history of colonic polyps K64.1, Second degree hemorrhoids D12.7, Benign neoplasm of rectosigmoid junction D12.4, Benign neoplasm of descending colon CPT copyright 2020 [employer]. All rights reserved. The codes documented in this report are preliminary and upon assessment analyst review may be revised to meet current compliance requirements. Jj Valenzuela MD 12/11/2024 10:12:39 AM This report has been signed electronically.Jj Valenzuela MD Number of Addenda: 0 Note Initiated On: 12/11/2024 9:14 AM Scope In: Scope Out: Endoscopy Department at [facility] - [address] [place] [phone] Procedure Note Jj Valenzuela MD - 12/11/2024 [facility] GI Patient Name: Cristian Chase Procedure Date: [...] the procedure. Procedure Code(s): --- Professional --- 90005, Colonoscopy, flexible; with removal of tumor(s), polyp(s), or other lesion(s) by snare technique Diagnosis Code(s): --- Professional --- Z86.010, Personal history of colonic polyps K64.1, Second degree hemorrhoids D12.7, Benign neoplasm of rectosigmoid junction D12.4, Benign neoplasm of descending colon CPT copyright 2020 [employer]. All rights reserved. The codes documented in this report are preliminary and upon assessment analyst reviewmay be revised to meet current compliance requirements. Jj Valenzuela MD 12/11/2024 10:12:39 AM This report has been signed electronically.Jj Valenzuela MD Number of Addenda: 0 Note Initiated On: 12/11/2024 9:14 AM Scope In: Scope Out: Endoscopy Department at [facility] - [address] [place] [phone] IMPRESSION: - Hemorrhoids. - One 5 mm [...] polyp: Tubular adenoma. 12/12/2024 10:19 AM EDT [facility] at 1019 EDT Gross Description A. [...] one slide. HARSHAD 12/12/2024 10:19 AM EDT [facility] Disclaimer Unless otherwise specified, all tissue is 10% NB formalin fixed and paraffin embedded. 12/12/2024 10:19 AM EDT [facility] Tissue Descending colon structure / Unknown 12/11/2024 10:02 AM EDT 12/11/2024 10:43 AM EDT Tissue specimen (specimen) Rectum structure / Unknown 12/11/2024 10:05 AM EDT 12/11/2024 10:43 AM EDT Jj Valenzuela MD LAB PATHOLOGY ORDERABLES Final R esult [facility] [address] [place] [address], * (ABNORMAL) Lipid panel (11/03/2019) LDL/HDL Ratio 2 0 - 4 Triglycerides 123 0 - 150 mg/dL Cholesterol 205(A) 0 - 200 mg/dL HDL 119 >=40 mg/dL LDL Cholesterol 62 0 - 100 mg/dL Blood Venous blood specimen / Unknown us Chidi Provider LAB BLOOD ORDERABLES Verito l Result from Last 3 Months or Most Recently Relevant to Health Maintenance Insurance [employer]UE [employer] - [place] MEDICARE ADVANTAGE Care Teams Rn Neurology Relationship Specialty Start Date End Date Eda Otto NP [address] [facility] [address] [place] [address] PCP - General Family Medicine 07/22/24
--- OUTSIDE RECORDS SUMMARY | 2025-01-26 15:21 | XMS_ITS | Clinical Summary ---
Author Organization [facility] Address [address] [place] [address] Care Team Providers Care [employer] Name Role Phone Jackson Orozco MD Primary Care Provider [phone] Allergies No known active allergies Medications Medication [...] age to complete this topic Care Teams [employer] Relationship Specialty Start Date End Date Jackson Orozco MD [address] [place] [phone] PCP - General Internal Medicine 05/29/22
== END 2025-01-26 11:34 | disposition home or self-care (01) ==
LOC: HO.HMGAL 11:33
PROVIDERS: PCP Nurse Practitioner Family; Visit Provider Registered Nurse Emergency
DX: J30.89 Other allergic rhinitis (principal)
CPT/HCPCS: 95117; 95165

== ENCOUNTER 2025-02-16 10:36 | Outpatient (AMB) | payer MEDICARE, SELFPAY | END 2025-02-16 10:36 | disposition home or self-care (01) | LOC: HO.HMGAL 10:36 | PROVIDERS: PCP Nurse Practitioner Family; Visit Provider Registered Nurse Emergency | DX: J30.89 Other allergic rhinitis (principal) | CPT/HCPCS: 95117; 95165 ==